=== PATIENT | female | born 2000 | race Caucasian/White ===

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

== ENCOUNTER 2020-02-13 12:46 | Outpatient (RCR) | payer BC, OTHER ==
[2019-11-21] MEDS: ACETAMINOPHEN 325 MG TABLET PO SCH (13:51)
[2019-11-21 14:00] VITALS: BP 121/80
[2019-11-21] MEDS: methylPREDNISolone 40 MG/ML (Solu-MEDROL) VIAL IV SCH (14:04)
[2019-11-21] MEDS: NS IV SCH ×2 (14:05)
[2019-11-21] MEDS: diphenhydrAMINE 50 MG/ML INJ (BENADRYL) IV SCH (14:05)
[2019-11-21] MEDS: INFLIXIMAB IV SCH ×2 (14:05)
[2019-11-21 14:35] VITALS: BP 105/57
[2019-11-21 14:37] LABS: BASOPHILS # (AUTO) 0.1 10^3/uL (0.0-0.1); BASOPHILS % (AUTO) 1 % (0-10); EOSINOPHILS # (AUTO) 0.2 10^3/uL (0.0-0.3); EOSINOPHILS % (AUTO) 3 % (0-10); HEMATOCRIT 38 % (35-52); HEMOGLOBIN 12.1 G/DL (11.5-16.0); LYMPHOCYTES # (AUTO) 3.2 X 10^3 (1.0-4.0); LYMPHOCYTES % (AUTO) 40 % (12-44); MEAN CORPUSCULAR HEMOGLOBIN 27 PG (25-34); MEAN CORPUSCULAR HGB CONC 32 G/DL (32-36); MEAN CORPUSCULAR VOLUME 84 FL (80-99); MEAN PLATELET VOLUME 10.5 FL (7.4-10.4); MONOCYTES # (AUTO) 0.7 X 10^3 (0.0-1.0); MONOCYTES % (AUTO) 9 % (0-12); NEUTROPHILS # (AUTO) 3.8 X 10^3 (1.8-7.8); NEUTROPHILS % (AUTO) 48 % (42-75); PLATELET COUNT 430 10^3/uL (130-400); RED CELL DISTRIBUTION WIDTH 12.5 % (10.0-14.5)
[2019-11-21 14:47] LABS: ALANINE AMINOTRANSFERASE 25 U/L (0-55); ALBUMIN 3.9 GM/DL (3.2-4.5); ALKALINE PHOSPHATASE 139 U/L (40-136); BILIRUBIN,TOTAL 0.4 MG/DL (0.1-1.0); BUN/CREATININE RATIO 25; CALCIUM 8.7 MG/DL (8.5-10.1); CARBON DIOXIDE 22 MMOL/L (21-32); CHLORIDE 105 MMOL/L (98-107); CREATININE SERUM 0.67 MG/DL (0.60-1.30); GFR ESTIMATED > 60; GLUCOSE 171 MG/DL (70-105); SODIUM 138 MMOL/L (135-145); TOTAL PROTEIN 7.3 GM/DL (6.4-8.2)
[2019-11-21 15:05] VITALS: BP 108/71
[2019-11-21 15:10] LABS: ERYTHROCYTE SEDIMENTATION RATE 30 MM/HR (0-20)
[2019-11-21 15:35] VITALS: BP 103/69
--- NOTE | 2019-11-21 16:10 | NUR ---
INFUSION COMPLETE. DENIES COMPLAINTS. VITAL SIGNS STABLE. WILL MONITOR PER ORDER.
[2019-11-21 16:35] VITALS: BP 110/81
--- NOTE | 2019-11-21 16:35 | NUR ---
VITAL SIGNS STABLE, DENIES COMPLAINTS. IV DC'D.
[2019-12-19] VITALS (8 sets, daily range): BP systolic 108–134; BP diastolic 69–97
[2019-12-19] MEDS: methylPREDNISolone 40 MG/ML (Solu-MEDROL) VIAL IV SCH (13:37)
[2019-12-19] MEDS: ACETAMINOPHEN 325 MG TABLET PO SCH (13:37)
[2019-12-19] MEDS: diphenhydrAMINE 50 MG/ML INJ (BENADRYL) IV SCH (13:37)
[2019-12-19] MEDS: NS IV SCH ×2 (13:43)
[2019-12-19] MEDS: INFLIXIMAB IV SCH ×2 (13:43)
--- NOTE | 2019-12-19 13:43 | NUR ---
REMICADE STARTED AT 10 CC/HR. VSS.
--- NOTE | 2019-12-19 13:55 | NUR ---
IV PUMP INCREASED TO 20 CC/HR. SITE CLEAR. VSS.
[2019-12-19 15:08] LABS: BASOPHILS # (AUTO) 0.1 10^3/uL (0.0-0.1); BASOPHILS % (AUTO) 1 % (0-10); EOSINOPHILS # (AUTO) 0.2 10^3/uL (0.0-0.3); EOSINOPHILS % (AUTO) 2 % (0-10); HEMATOCRIT 42 % (35-52); HEMOGLOBIN 13.8 G/DL (11.5-16.0); LYMPHOCYTES # (AUTO) 2.6 X 10^3 (1.0-4.0); LYMPHOCYTES % (AUTO) 29 % (12-44); MEAN CORPUSCULAR HEMOGLOBIN 26 PG (25-34); MEAN CORPUSCULAR HGB CONC 33 G/DL (32-36); MEAN CORPUSCULAR VOLUME 81 FL (80-99); MEAN PLATELET VOLUME 10.4 FL (7.4-10.4); MONOCYTES # (AUTO) 0.5 X 10^3 (0.0-1.0); MONOCYTES % (AUTO) 5 % (0-12); NEUTROPHILS # (AUTO) 5.5 X 10^3 (1.8-7.8); NEUTROPHILS % (AUTO) 63 % (42-75); PLATELET COUNT 522 10^3/uL (130-400); RED CELL DISTRIBUTION WIDTH 13.4 % (10.0-14.5); WHITE BLOOD COUNT 8.8 10^3/uL (4.3-11.0)
[2019-12-19 15:40] LABS: ERYTHROCYTE SEDIMENTATION RATE 6 MM/HR (0-20)
[2019-12-19 15:45] LABS: EOSINOPHILS % (MANUAL) 3 %; LYMPHOCYTES % (MANUAL) 36 %; MONOCYTES % (MANUAL) 6 %; NEUTROPHILS % (MANUAL) 55 %; RBC MORPH NORMAL
[2019-12-19 15:54] LABS: ALANINE AMINOTRANSFERASE 29 U/L (0-55); ALBUMIN 4.3 GM/DL (3.2-4.5); ALKALINE PHOSPHATASE 136 U/L (40-136); BILIRUBIN,TOTAL 0.4 MG/DL (0.1-1.0); BUN/CREATININE RATIO 18; CALCIUM 9.1 MG/DL (8.5-10.1); CARBON DIOXIDE 19 MMOL/L (21-32); CHLORIDE 106 MMOL/L (98-107); CREATININE SERUM 0.67 MG/DL (0.60-1.30); GFR ESTIMATED > 60; GLUCOSE 157 MG/DL (70-105); POTASSIUM 4.2 MMOL/L (3.6-5.0); SODIUM 138 MMOL/L (135-145); TOTAL PROTEIN 8.3 GM/DL (6.4-8.2)
--- NOTE | 2019-12-19 15:55 | NUR ---
REMICADE INFUSED WITHOUT DIFFICULTY. FLUSHED LINE WITH NORMAL SALINE. VSS. WILL LET PATIENT GO HOME IN 30 MINUTES.
--- NOTE | 2019-12-19 16:25 | NUR ---
TEMP 36.3, PULSE 97, RESP 16, B/P 129/84, SAO2 98% RA. DENIES COMPLAINTS. IV DC'D, SITE CLEAR LEFT UPPER ARM.
--- NOTE | 2019-12-19 16:30 | NUR ---
GAIT STEADY, DENIES COMPLAINTS. ESCORTED AMB TO FRONT EXIT TO PRIVATE VEHICLE.
[2020-01-16 12:46] VITALS: BP 120/78
[2020-01-16 14:11] LABS: BASOPHILS # (AUTO) 0.1 10^3/uL (0.0-0.1); BASOPHILS % (AUTO) 1 % (0-10); EOSINOPHILS # (AUTO) 0.3 10^3/uL (0.0-0.3); EOSINOPHILS % (AUTO) 3 % (0-10); HEMATOCRIT 37 % (35-52); LYMPHOCYTES # (AUTO) 2.1 X 10^3 (1.0-4.0); LYMPHOCYTES % (AUTO) 26 % (12-44); MEAN CORPUSCULAR HEMOGLOBIN 26 PG (25-34); MEAN CORPUSCULAR HGB CONC 32 G/DL (32-36); MEAN CORPUSCULAR VOLUME 81 FL (80-99); MEAN PLATELET VOLUME 10.5 FL (7.4-10.4); MONOCYTES # (AUTO) 0.5 X 10^3 (0.0-1.0); MONOCYTES % (AUTO) 6 % (0-12); NEUTROPHILS # (AUTO) 5.2 X 10^3 (1.8-7.8); NEUTROPHILS % (AUTO) 64 % (42-75); PLATELET COUNT 377 10^3/uL (130-400); RED CELL DISTRIBUTION WIDTH 14.2 % (10.0-14.5); WHITE BLOOD COUNT 8.1 10^3/uL (4.3-11.0)
[2020-01-16] MEDS: ACETAMINOPHEN 325 MG TABLET PO SCH (14:11)
[2020-01-16] MEDS: diphenhydrAMINE 50 MG/ML INJ (BENADRYL) IV SCH (14:12)
[2020-01-16 14:35] LABS: ALANINE AMINOTRANSFERASE 22 U/L (0-55); ALBUMIN 3.7 GM/DL (3.2-4.5); ALKALINE PHOSPHATASE 102 U/L (40-136); BUN/CREATININE RATIO 16; CALCIUM 8.5 MG/DL (8.5-10.1); CARBON DIOXIDE 20 MMOL/L (21-32); CHLORIDE 108 MMOL/L (98-107); CREATININE SERUM 0.61 MG/DL (0.60-1.30); GFR ESTIMATED > 60; GLUCOSE 144 MG/DL (70-105); POTASSIUM 3.9 MMOL/L (3.6-5.0); SODIUM 138 MMOL/L (135-145); TOTAL PROTEIN 6.8 GM/DL (6.4-8.2)
[2020-01-16 14:36] LABS: ERYTHROCYTE SEDIMENTATION RATE 19 MM/HR (0-20)
[2020-01-16 15:00] LABS: BILIRUBIN,TOTAL 0.3 MG/DL (0.1-1.0)
[2020-01-16] MEDS: methylPREDNISolone 40 MG/ML (Solu-MEDROL) VIAL IV SCH (15:22)
[2020-01-16] MEDS: INFLIXIMAB IV SCH ×2 (15:38)
[2020-01-16] MEDS: NS IV SCH ×2 (15:38)
[2020-01-16 16:15] VITALS: BP 112/70
[2020-01-16 17:15] VITALS: BP 114/78
[2020-01-16 18:10] VITALS: BP 117/72
[2020-01-16 18:30] VITALS: BP 120/78
[2020-02-13 12:45] VITALS: BP 98/70
[~2020-02-13 12:46] MED LIST changes: -ACETAMINOPHEN 325 MG TABLET ONE; -INFLIXIMAB IV SCH; +LIDOCAINE 1% INJ 20 ML 20 ML VIAL ONE; -NS IV SCH; -diphenhydrAMINE 50 MG/ML INJ (BENADRYL) ONE; -methylPREDNISolone 125 MG (Solu-MEDROL) VIAL ONE
[2020-02-13 13:33] LABS: BASOPHILS # (AUTO) 0.1 10^3/uL (0.0-0.1); BASOPHILS % (AUTO) 1 % (0-10); EOSINOPHILS # (AUTO) 0.3 10^3/uL (0.0-0.3); EOSINOPHILS % (AUTO) 3 % (0-10); HEMATOCRIT 37 % (35-52); HEMOGLOBIN 12.2 G/DL (11.5-16.0); LYMPHOCYTES # (AUTO) 2.8 X 10^3 (1.0-4.0); LYMPHOCYTES % (AUTO) 30 % (12-44); MEAN CORPUSCULAR HEMOGLOBIN 27 PG (25-34); MEAN CORPUSCULAR HGB CONC 33 G/DL (32-36); MEAN CORPUSCULAR VOLUME 80 FL (80-99); MEAN PLATELET VOLUME 10.9 FL (7.4-10.4); MONOCYTES # (AUTO) 0.8 X 10^3 (0.0-1.0); MONOCYTES % (AUTO) 9 % (0-12); NEUTROPHILS # (AUTO) 5.4 X 10^3 (1.8-7.8); NEUTROPHILS % (AUTO) 58 % (42-75); PLATELET COUNT 447 10^3/uL (130-400); RED CELL DISTRIBUTION WIDTH 14.7 % (10.0-14.5); WHITE BLOOD COUNT 9.3 10^3/uL (4.3-11.0)
[2020-02-13] MEDS: ACETAMINOPHEN 325 MG TABLET PO SCH (13:36)
[2020-02-13] MEDS: methylPREDNISolone 40 MG/ML (Solu-MEDROL) VIAL IV SCH (13:37)
[2020-02-13] MEDS: diphenhydrAMINE 50 MG/ML INJ (BENADRYL) IV SCH (13:41)
[2020-02-13 13:51] LABS: ALBUMIN 3.7 GM/DL (3.2-4.5); CHLORIDE 104 MMOL/L (98-107); POTASSIUM 5.8 MMOL/L (3.6-5.0); SODIUM 133 MMOL/L (135-145)
[2020-02-13 13:52] LABS: CALCIUM 8.4 MG/DL (8.5-10.1)
[2020-02-13 13:54] LABS: GLUCOSE 93 MG/DL (70-105); TOTAL PROTEIN 8.6 GM/DL (6.4-8.2)
[2020-02-13 13:55] LABS: CARBON DIOXIDE 19 MMOL/L (21-32)
[2020-02-13 13:56] LABS: BILIRUBIN,TOTAL 0.4 MG/DL (0.1-1.0)
[2020-02-13 13:57] LABS: ALKALINE PHOSPHATASE 113 U/L (40-136); ERYTHROCYTE SEDIMENTATION RATE 17 MM/HR (0-20)
[2020-02-13 13:58] LABS: CREATININE SERUM 0.61 MG/DL (0.60-1.30); GFR ESTIMATED > 60
[2020-02-13 13:59] LABS: BUN/CREATININE RATIO 15
[2020-02-13 14:00] LABS: ALANINE AMINOTRANSFERASE 31 U/L (0-55)
[2020-02-13] MEDS: INFLIXIMAB IV SCH ×2 (14:15)
[2020-02-13] MEDS: NS IV SCH ×2 (14:15)
[2020-02-13 16:45] VITALS: BP 108/70
== END 2020-02-19 | disposition home or self-care (01) ==
LOC: SDC 12:46
PROVIDERS: ATTEND Pediatrics
DX: M12.9 Arthropathy, unspecified (principal)
CPT/HCPCS: 36415; 80053; 85007; 85025; 85027; 85652; 86141; 96365; 96366; 96374; 96375

== ENCOUNTER → 2020-06-10 | Outpatient (RCR) | payer BC, OTHER ==
[2020-03-12 13:47] LABS: BASOPHILS % (AUTO) 1 % (0-10); EOSINOPHILS # (AUTO) 0.3 10^3/uL (0.0-0.3); EOSINOPHILS % (AUTO) 3 % (0-10); HEMATOCRIT 38 % (35-52); HEMOGLOBIN 12.4 G/DL (11.5-16.0); LYMPHOCYTES # (AUTO) 2.3 X 10^3 (1.0-4.0); LYMPHOCYTES % (AUTO) 27 % (12-44); MEAN CORPUSCULAR HEMOGLOBIN 27 PG (25-34); MEAN CORPUSCULAR HGB CONC 33 G/DL (32-36); MEAN CORPUSCULAR VOLUME 81 FL (80-99); MEAN PLATELET VOLUME 10.2 FL (7.4-10.4); MONOCYTES # (AUTO) 0.5 X 10^3 (0.0-1.0); MONOCYTES % (AUTO) 6 % (0-12); NEUTROPHILS # (AUTO) 5.4 X 10^3 (1.8-7.8); NEUTROPHILS % (AUTO) 64 % (42-75); PLATELET COUNT 408 10^3/uL (130-400); WHITE BLOOD COUNT 8.5 10^3/uL (4.3-11.0)
[2020-03-12] MEDS: methylPREDNISolone 40 MG/ML (Solu-MEDROL) VIAL IV SCH (13:50)
[2020-03-12] MEDS: ACETAMINOPHEN 325 MG TABLET PO SCH (13:50)
[2020-03-12] MEDS: diphenhydrAMINE 50 MG/ML INJ (BENADRYL) IV SCH (13:50)
[2020-03-12 13:58] VITALS: BP 113/73
[2020-03-12 13:59] LABS: ALBUMIN 3.8 GM/DL (3.2-4.5); CHLORIDE 106 MMOL/L (98-107); POTASSIUM 4.1 MMOL/L (3.6-5.0); SODIUM 137 MMOL/L (135-145)
[2020-03-12 14:00] LABS: CALCIUM 8.8 MG/DL (8.5-10.1)
[2020-03-12 14:02] LABS: GLUCOSE 124 MG/DL (70-105); TOTAL PROTEIN 7.4 GM/DL (6.4-8.2)
[2020-03-12 14:03] LABS: BILIRUBIN,TOTAL 0.4 MG/DL (0.1-1.0); CARBON DIOXIDE 21 MMOL/L (21-32)
[2020-03-12 14:05] LABS: ALKALINE PHOSPHATASE 134 U/L (40-136); CREATININE SERUM 0.55 MG/DL (0.60-1.30); GFR ESTIMATED > 60
[2020-03-12 14:06] LABS: BUN/CREATININE RATIO 13
[2020-03-12 14:08] LABS: ALANINE AMINOTRANSFERASE 30 U/L (0-55)
[2020-03-12 14:11] LABS: ERYTHROCYTE SEDIMENTATION RATE 32 MM/HR (0-20)
--- NOTE | 2020-03-12 16:20 | NUR ---
INFUSION COMPLETE. IV DC'D, NO COMPLAINTS AT THIS TIME. PT DC'D WITH MOTHER AT SIDE.
[2020-04-15 13:25] VITALS: BP 113/73
[2020-04-15 13:25] LABS: BASOPHILS % (AUTO) 1 % (0-10); EOSINOPHILS # (AUTO) 0.3 10^3/uL (0.0-0.3); EOSINOPHILS % (AUTO) 5 % (0-10); HEMATOCRIT 36 % (35-52); HEMOGLOBIN 11.6 G/DL (11.5-16.0); LYMPHOCYTES # (AUTO) 2.3 X 10^3 (1.0-4.0); LYMPHOCYTES % (AUTO) 35 % (12-44); MEAN CORPUSCULAR HEMOGLOBIN 26 PG (25-34); MEAN CORPUSCULAR HGB CONC 33 G/DL (32-36); MEAN CORPUSCULAR VOLUME 81 FL (80-99); MEAN PLATELET VOLUME 10.7 FL (7.4-10.4); MONOCYTES # (AUTO) 0.6 X 10^3 (0.0-1.0); MONOCYTES % (AUTO) 9 % (0-12); NEUTROPHILS # (AUTO) 3.4 X 10^3 (1.8-7.8); NEUTROPHILS % (AUTO) 52 % (42-75); PLATELET COUNT 412 10^3/uL (130-400); WHITE BLOOD COUNT 6.6 10^3/uL (4.3-11.0)
--- NOTE | 2020-04-15 13:34 | NUR ---
PREMEDS GIVEN. REMICADE STARTED PER PUMP AT 1340.
[2020-04-15] MEDS: diphenhydrAMINE 50 MG/ML INJ (BENADRYL) IV SCH (13:36)
[2020-04-15 13:54] LABS: ALANINE AMINOTRANSFERASE 35 U/L (0-55); ALBUMIN 3.7 GM/DL (3.2-4.5); ALKALINE PHOSPHATASE 117 U/L (40-136); BILIRUBIN,TOTAL 0.5 MG/DL (0.1-1.0); BUN/CREATININE RATIO 23; CALCIUM 8.5 MG/DL (8.5-10.1); CARBON DIOXIDE 23 MMOL/L (21-32); CHLORIDE 108 MMOL/L (98-107); CREATININE SERUM 0.56 MG/DL (0.60-1.30); ERYTHROCYTE SEDIMENTATION RATE 29 MM/HR (0-20); GFR ESTIMATED > 60; GLUCOSE 91 MG/DL (70-105); SODIUM 138 MMOL/L (135-145); TOTAL PROTEIN 7.3 GM/DL (6.4-8.2)
--- NOTE | 2020-04-15 15:56 | NUR ---
REMICADE INFUSED WITHOUT S/S OF ANY REACTION. PT DC'D
[2020-05-13 08:16] LABS: BASOPHILS % (AUTO) 1 % (0-10); EOSINOPHILS # (AUTO) 0.2 10^3/uL (0.0-0.3); EOSINOPHILS % (AUTO) 4 % (0-10); HEMATOCRIT 37 % (35-52); LYMPHOCYTES # (AUTO) 2.1 X 10^3 (1.0-4.0); LYMPHOCYTES % (AUTO) 32 % (12-44); MEAN CORPUSCULAR HEMOGLOBIN 26 PG (25-34); MEAN CORPUSCULAR HGB CONC 32 G/DL (32-36); MEAN CORPUSCULAR VOLUME 80 FL (80-99); MEAN PLATELET VOLUME 10.8 FL (7.4-10.4); MONOCYTES # (AUTO) 0.7 X 10^3 (0.0-1.0); MONOCYTES % (AUTO) 10 % (0-12); NEUTROPHILS # (AUTO) 3.6 X 10^3 (1.8-7.8); NEUTROPHILS % (AUTO) 54 % (42-75); PLATELET COUNT 373 10^3/uL (130-400); WHITE BLOOD COUNT 6.6 10^3/uL (4.3-11.0)
[2020-05-13] MEDS: ACETAMINOPHEN 325 MG TABLET PO SCH (08:17)
[2020-05-13] MEDS: methylPREDNISolone 40 MG/ML (Solu-MEDROL) VIAL IV SCH (08:18)
[2020-05-13] MEDS: diphenhydrAMINE 50 MG/ML INJ (BENADRYL) IV SCH (08:18)
[2020-05-13 08:31] VITALS: BP 128/83
[2020-05-13 08:34] LABS: ALANINE AMINOTRANSFERASE 34 U/L (0-55); ALKALINE PHOSPHATASE 126 U/L (40-136); BILIRUBIN,TOTAL 0.4 MG/DL (0.1-1.0); BUN/CREATININE RATIO 26; CALCIUM 8.9 MG/DL (8.5-10.1); CARBON DIOXIDE 21 MMOL/L (21-32); CHLORIDE 106 MMOL/L (98-107); CREATININE SERUM 0.58 MG/DL (0.60-1.30); GFR ESTIMATED > 60; GLUCOSE 93 MG/DL (70-105); SODIUM 138 MMOL/L (135-145); TOTAL PROTEIN 7.9 GM/DL (6.4-8.2)
[2020-05-13 08:45] VITALS: BP 125/82
[2020-05-13 09:00] VITALS: BP 119/74
[2020-05-13 09:10] LABS: ERYTHROCYTE SEDIMENTATION RATE 34 MM/HR (0-20)
[2020-05-13 09:15] VITALS: BP 105/60
[2020-05-13 09:30] VITALS: BP 113/65
[2020-05-13 10:00] VITALS: BP 112/58
[~2020-06-10] MED LIST changes: +ACETAMINOPHEN 325 MG TABLET ONE; +INFLIXIMAB IV ONE; +INFLIXIMAB IV SCH; -LIDOCAINE 1% INJ 20 ML 20 ML VIAL ONE; +NS IV ONE; +NS IV SCH; +diphenhydrAMINE 50 MG/ML INJ (BENADRYL) ONE; +methylPREDNISolone 40 MG/ML (Solu-MEDROL) VIAL ONE
[2020-06-10] MEDS: ACETAMINOPHEN 325 MG TABLET PO SCH (08:20)
[2020-06-10] MEDS: methylPREDNISolone 40 MG/ML (Solu-MEDROL) VIAL IV SCH (08:20)
[2020-06-10] MEDS: diphenhydrAMINE 50 MG/ML INJ (BENADRYL) IV SCH (08:21)
--- NOTE | 2020-06-10 08:21 | NUR ---
REMICADE INFUSION STARTED AT 10 CC/HR PER PUMP. VSS.
[2020-06-10 08:24] LABS: BASOPHILS % (AUTO) 0 % (0-10); EOSINOPHILS # (AUTO) 0.2 10^3/uL (0.0-0.3); EOSINOPHILS % (AUTO) 3 % (0-10); HEMATOCRIT 38 % (35-52); LYMPHOCYTES # (AUTO) 2.8 X 10^3 (1.0-4.0); LYMPHOCYTES % (AUTO) 44 % (12-44); MEAN CORPUSCULAR HEMOGLOBIN 26 PG (25-34); MEAN CORPUSCULAR HGB CONC 32 G/DL (32-36); MEAN CORPUSCULAR VOLUME 81 FL (80-99); MEAN PLATELET VOLUME 10.7 FL (7.4-10.4); MONOCYTES # (AUTO) 0.5 X 10^3 (0.0-1.0); MONOCYTES % (AUTO) 7 % (0-12); NEUTROPHILS # (AUTO) 2.9 X 10^3 (1.8-7.8); NEUTROPHILS % (AUTO) 46 % (42-75); PLATELET COUNT 383 10^3/uL (130-400); WHITE BLOOD COUNT 6.4 10^3/uL (4.3-11.0)
[2020-06-10 08:28] VITALS: BP 138/89
[2020-06-10 08:35] VITALS: BP 125/76
--- NOTE | 2020-06-10 08:35 | NUR ---
REMICADE INCREASED TO 20 CC/HR.
[2020-06-10 08:39] LABS: ALANINE AMINOTRANSFERASE 76 U/L (0-55); ALBUMIN 3.9 GM/DL (3.2-4.5); ALKALINE PHOSPHATASE 101 U/L (40-136); BILIRUBIN,TOTAL 0.3 MG/DL (0.1-1.0); BUN/CREATININE RATIO 29; CALCIUM 8.5 MG/DL (8.5-10.1); CARBON DIOXIDE 21 MMOL/L (21-32); CHLORIDE 106 MMOL/L (98-107); CREATININE SERUM 0.58 MG/DL (0.60-1.30); GFR ESTIMATED > 60; GLUCOSE 108 MG/DL (70-105); POTASSIUM 4.3 MMOL/L (3.6-5.0); SODIUM 136 MMOL/L (135-145); TOTAL PROTEIN 7.5 GM/DL (6.4-8.2)
[2020-06-10 08:49] LABS: ERYTHROCYTE SEDIMENTATION RATE 32 MM/HR (0-20)
[2020-06-10 08:50] VITALS: BP 117/74
--- NOTE | 2020-06-10 08:50 | NUR ---
REMICADE INCREASED TO 40 CC/HR.
--- NOTE | 2020-06-10 09:05 | NUR ---
REMICADE INCREASED TO 80 CC/HR.
[2020-06-10 09:10] VITALS: BP 120/66
[2020-06-10 09:20] VITALS: BP 129/74
--- NOTE | 2020-06-10 09:20 | NUR ---
REMICADE INCREASED TO 150 CC/HR. VSS.
[2020-06-10 09:50] VITALS: BP 129/69
--- NOTE | 2020-06-10 09:50 | NUR ---
REMICADE INCREASED TO 250 CC/HR. VSS.
== END | disposition home or self-care (01) ==
LOC: EDSTATUS 03-12 13:00 → SDC 03-12 13:20
PROVIDERS: ATTEND Pediatrics
DX: Z01.89 Encounter for other specified special examinations (principal)
CPT/HCPCS: 36415; 80053; 85025; 85652; 86141; 96365; 96366; 96374; 96375

== ENCOUNTER 2020-09-09 07:54 | Outpatient (RCR) | payer BC, OTHER ==
[2020-07-08 08:35] VITALS: BP 116/82
[2020-07-08 08:38] LABS: HEMOGLOBIN 12.2 g/dL (11.5-16.0); MEAN PLATELET VOLUME 10.5 fL (9.0-12.2)
[2020-07-08 08:58] LABS: ALANINE AMINOTRANSFERASE 63 U/L (0-55); ALBUMIN 3.6 GM/DL (3.2-4.5); ALKALINE PHOSPHATASE 104 U/L (40-136); BILIRUBIN,TOTAL 0.4 MG/DL (0.1-1.0); BUN/CREATININE RATIO 17; CALCIUM 8.4 MG/DL (8.5-10.1); CARBON DIOXIDE 20 MMOL/L (21-32); CHLORIDE 107 MMOL/L (98-107); CREATININE SERUM 0.54 MG/DL (0.60-1.30); GFR ESTIMATED > 60; GLUCOSE 112 MG/DL (70-105); POTASSIUM 4.2 MMOL/L (3.6-5.0); SODIUM 139 MMOL/L (135-145); TOTAL PROTEIN 6.9 GM/DL (6.4-8.2)
[2020-07-08] MEDS: ACETAMINOPHEN 325 MG TABLET PO SCH (09:15)
[2020-07-08] MEDS: methylPREDNISolone 40 MG/ML (Solu-MEDROL) VIAL IV SCH (09:15)
[2020-07-08] MEDS: diphenhydrAMINE 50 MG/ML INJ (BENADRYL) IV SCH (09:15)
[2020-07-08] MEDS: NS IV SCH ×2 (09:26)
[2020-07-08] MEDS: INFLIXIMAB IV SCH ×2 (09:26)
[2020-08-12 08:15] VITALS: BP 111/73
[2020-08-12] MEDS: methylPREDNISolone 40 MG/ML (Solu-MEDROL) VIAL IV SCH (08:29)
[2020-08-12] MEDS: ACETAMINOPHEN 325 MG TABLET PO SCH (08:29)
[2020-08-12] MEDS: diphenhydrAMINE 50 MG/ML INJ (BENADRYL) IV SCH (08:29)
[2020-08-12 08:30] LABS: BASOPHILS % (AUTO) 0 % (0-10); EOSINOPHILS # (AUTO) 0.2 10^3/uL (0.0-0.3); EOSINOPHILS % (AUTO) 4 % (0-10); HEMATOCRIT 45 % (35-52); HEMOGLOBIN 14.4 g/dL (11.5-16.0); LYMPHOCYTES # (AUTO) 2.4 10^3/uL (1.0-4.0); LYMPHOCYTES % (AUTO) 39 % (12-44); MEAN CORPUSCULAR HEMOGLOBIN 27 pg (25-34); MEAN CORPUSCULAR HGB CONC 32 g/dL (32-36); MEAN CORPUSCULAR VOLUME 84 fL (80-99); MEAN PLATELET VOLUME 11.5 fL (9.0-12.2); MONOCYTES # (AUTO) 0.3 10^3/uL (0.0-1.0); MONOCYTES % (AUTO) 6 % (0-12); NEUTROPHILS # (AUTO) 3.2 10^3/uL (1.8-7.8); NEUTROPHILS % (AUTO) 52 % (42-75); PLATELET COUNT 386 10^3/uL (130-400); WHITE BLOOD COUNT 6.1 10^3/uL (4.3-11.0)
[2020-08-12] MEDS: INFLIXIMAB IV SCH ×2 (08:41)
[2020-08-12] MEDS: NS IV SCH ×2 (08:41)
[2020-08-12 08:49] LABS: ERYTHROCYTE SEDIMENTATION RATE 7 MM/HR (0-20)
[2020-08-12 09:08] LABS: ALANINE AMINOTRANSFERASE 55 U/L (0-55); ALBUMIN 3.7 GM/DL (3.2-4.5); ALKALINE PHOSPHATASE 101 U/L (40-136); BILIRUBIN,TOTAL 0.6 MG/DL (0.1-1.0); BUN/CREATININE RATIO 15; CALCIUM 8.6 MG/DL (8.5-10.1); CARBON DIOXIDE 22 MMOL/L (21-32); CHLORIDE 108 MMOL/L (98-107); CREATININE SERUM 0.59 MG/DL (0.60-1.30); GFR ESTIMATED > 60; GLUCOSE 84 MG/DL (70-105); POTASSIUM 3.7 MMOL/L (3.6-5.0); SODIUM 140 MMOL/L (135-145)
[~2020-09-09] VITALS: Ht 152.4 cm
[~2020-09-09 07:54] MED LIST changes: -ACETAMINOPHEN 325 MG TABLET ONE; -INFLIXIMAB IV ONE; -INFLIXIMAB IV SCH; -NS IV ONE; -NS IV SCH; +ONDANSETRON 4 MG (ZOFRAN) ORAL DISSOLVE TAB PO PRN; -ONDANSETRON 4 MG/2 ML (SDV) Z0FRAN IV PRN; -diphenhydrAMINE 50 MG/ML INJ (BENADRYL) ONE; -methylPREDNISolone 40 MG/ML (Solu-MEDROL) VIAL ONE
[2020-09-09 08:15] VITALS: BP 111/75
[2020-09-09] MEDS: ACETAMINOPHEN 325 MG TABLET PO SCH (08:16)
[2020-09-09] MEDS: methylPREDNISolone 40 MG/ML (Solu-MEDROL) VIAL IV SCH (08:16)
[2020-09-09] MEDS: NS IV SCH ×2 (08:16)
[2020-09-09] MEDS: INFLIXIMAB IV SCH ×2 (08:16)
[2020-09-09] MEDS: diphenhydrAMINE 50 MG/ML INJ (BENADRYL) IV SCH (08:16)
[2020-09-09 09:13] LABS: BASOPHILS % (AUTO) 1 % (0-10); EOSINOPHILS # (AUTO) 0.3 10^3/uL (0.0-0.3); EOSINOPHILS % (AUTO) 5 % (0-10); HEMATOCRIT 39 % (35-52); HEMOGLOBIN 12.3 g/dL (11.5-16.0); LYMPHOCYTES # (AUTO) 1.8 10^3/uL (1.0-4.0); LYMPHOCYTES % (AUTO) 35 % (12-44); MEAN CORPUSCULAR HEMOGLOBIN 27 pg (25-34); MEAN CORPUSCULAR HGB CONC 32 g/dL (32-36); MEAN CORPUSCULAR VOLUME 85 fL (80-99); MEAN PLATELET VOLUME 10.8 fL (9.0-12.2); MONOCYTES # (AUTO) 0.3 10^3/uL (0.0-1.0); MONOCYTES % (AUTO) 6 % (0-12); NEUTROPHILS # (AUTO) 2.8 10^3/uL (1.8-7.8); NEUTROPHILS % (AUTO) 53 % (42-75); PLATELET COUNT 386 10^3/uL (130-400); WHITE BLOOD COUNT 5.3 10^3/uL (4.3-11.0)
[2020-09-09 09:38] LABS: ALANINE AMINOTRANSFERASE 66 U/L (0-55); ALBUMIN 3.7 GM/DL (3.2-4.5); ALKALINE PHOSPHATASE 91 U/L (40-136); BILIRUBIN,TOTAL 0.4 MG/DL (0.1-1.0); BUN/CREATININE RATIO 17; CALCIUM 8.4 MG/DL (8.5-10.1); CARBON DIOXIDE 19 MMOL/L (21-32); CHLORIDE 109 MMOL/L (98-107); CREATININE SERUM 0.59 MG/DL (0.60-1.30); GFR ESTIMATED > 60; GLUCOSE 124 MG/DL (70-105); POTASSIUM 3.8 MMOL/L (3.6-5.0); SODIUM 136 MMOL/L (135-145)
[2020-09-09 09:55] LABS: ERYTHROCYTE SEDIMENTATION RATE 18 MM/HR (0-20)
== END 2020-10-06 | disposition home or self-care (01) ==
LOC: SDC 07:54
PROVIDERS: ATTEND Pediatrics
DX: Z01.89 Encounter for other specified special examinations (principal)
CPT/HCPCS: 36415; 80053; 85025; 85027; 85652; 86141; 96365; 96366; 96374; 96375

== ENCOUNTER 2020-11-07 09:27 | Outpatient (RCR) | payer BC, OTHER ==
[2020-10-10 12:35] LABS: BASOPHILS % (AUTO) 0 % (0-10); EOSINOPHILS # (AUTO) 0.3 10^3/uL (0.0-0.3); EOSINOPHILS % (AUTO) 4 % (0-10); HEMATOCRIT 38 % (35-52); HEMOGLOBIN 12.4 g/dL (11.5-16.0); LYMPHOCYTES # (AUTO) 1.6 10^3/uL (1.0-4.0); LYMPHOCYTES % (AUTO) 20 % (12-44); MEAN CORPUSCULAR HEMOGLOBIN 27 pg (25-34); MEAN CORPUSCULAR HGB CONC 33 g/dL (32-36); MEAN CORPUSCULAR VOLUME 83 fL (80-99); MEAN PLATELET VOLUME 10.9 fL (9.0-12.2); MONOCYTES # (AUTO) 0.6 10^3/uL (0.0-1.0); MONOCYTES % (AUTO) 8 % (0-12); NEUTROPHILS # (AUTO) 5.4 10^3/uL (1.8-7.8); NEUTROPHILS % (AUTO) 68 % (42-75); PLATELET COUNT 379 10^3/uL (130-400); WHITE BLOOD COUNT 7.9 10^3/uL (4.3-11.0)
[2020-10-10] MEDS: diphenhydrAMINE 50 MG/ML INJ (BENADRYL) IV SCH (12:35)
[2020-10-10] MEDS: methylPREDNISolone 40 MG/ML (Solu-MEDROL) VIAL IV SCH (12:35)
[2020-10-10] MEDS: ACETAMINOPHEN 325 MG TABLET PO SCH (12:36)
[2020-10-10] MEDS: INFLIXIMAB IV SCH ×2 (12:37)
[2020-10-10] MEDS: NS IV SCH ×2 (12:37)
[2020-10-10 12:54] LABS: ALANINE AMINOTRANSFERASE 80 U/L (0-55); ALBUMIN 3.7 GM/DL (3.2-4.5); ALKALINE PHOSPHATASE 93 U/L (40-136); BILIRUBIN,TOTAL 0.3 MG/DL (0.1-1.0); BUN/CREATININE RATIO 21; CALCIUM 8.5 MG/DL (8.5-10.1); CARBON DIOXIDE 22 MMOL/L (21-32); CHLORIDE 105 MMOL/L (98-107); CREATININE SERUM 0.72 MG/DL (0.60-1.30); GFR ESTIMATED > 60; GLUCOSE 105 MG/DL (70-105); POTASSIUM 4.1 MMOL/L (3.6-5.0); SODIUM 137 MMOL/L (135-145); TOTAL PROTEIN 7.2 GM/DL (6.4-8.2)
[2020-10-10 13:02] LABS: ERYTHROCYTE SEDIMENTATION RATE 22 MM/HR (0-20)
[2020-10-10 13:16] VITALS: BP 134/84
[2020-11-07 09:25] VITALS: BP 111/73
[~2020-11-07 09:27] MED LIST changes: +ACETAMINOPHEN 325 MG TABLET ONE; +EPINEPHrine INJECTION 1 MG/ML AMP IV PRN; -EPINEPHrine INJECTION 1 MG/ML AMP SC PRN; -ONDANSETRON 4 MG (ZOFRAN) ORAL DISSOLVE TAB PO PRN; +ONDANSETRON 4 MG/2 ML (SDV) Z0FRAN IV PRN; +diphenhydrAMINE 50 MG/ML INJ (BENADRYL) ONE
[2020-11-07] MEDS: ACETAMINOPHEN 325 MG TABLET PO SCH (09:41)
[2020-11-07] MEDS: methylPREDNISolone 40 MG/ML (Solu-MEDROL) VIAL IV SCH (09:41)
[2020-11-07] MEDS: diphenhydrAMINE 50 MG/ML INJ (BENADRYL) IV SCH (09:42)
[2020-11-07] MEDS: INFLIXIMAB IV SCH ×2 (09:50)
[2020-11-07] MEDS: NS IV SCH ×2 (09:50)
[2020-11-07 09:58] LABS: BASOPHILS % (AUTO) 0 % (0-10); EOSINOPHILS # (AUTO) 0.4 10^3/uL (0.0-0.3); EOSINOPHILS % (AUTO) 6 % (0-10); HEMATOCRIT 41 % (35-52); HEMOGLOBIN 13.1 g/dL (11.5-16.0); LYMPHOCYTES # (AUTO) 2.1 10^3/uL (1.0-4.0); LYMPHOCYTES % (AUTO) 30 % (12-44); MEAN CORPUSCULAR HEMOGLOBIN 27 pg (25-34); MEAN CORPUSCULAR HGB CONC 32 g/dL (32-36); MEAN CORPUSCULAR VOLUME 85 fL (80-99); MEAN PLATELET VOLUME 11.2 fL (9.0-12.2); MONOCYTES # (AUTO) 0.5 10^3/uL (0.0-1.0); MONOCYTES % (AUTO) 7 % (0-12); NEUTROPHILS # (AUTO) 3.9 10^3/uL (1.8-7.8); NEUTROPHILS % (AUTO) 57 % (42-75); PLATELET COUNT 377 10^3/uL (130-400); WHITE BLOOD COUNT 6.9 10^3/uL (4.3-11.0)
[2020-11-07 10:12] LABS: ALANINE AMINOTRANSFERASE 93 U/L (0-55); ALBUMIN 3.8 GM/DL (3.2-4.5); ALKALINE PHOSPHATASE 110 U/L (40-136); BILIRUBIN,TOTAL 0.3 MG/DL (0.1-1.0); BUN/CREATININE RATIO 14; CALCIUM 8.8 MG/DL (8.5-10.1); CARBON DIOXIDE 21 MMOL/L (21-32); CHLORIDE 107 MMOL/L (98-107); CREATININE SERUM 0.65 MG/DL (0.60-1.30); GFR ESTIMATED > 60; GLUCOSE 103 MG/DL (70-105); SODIUM 137 MMOL/L (135-145); TOTAL PROTEIN 7.3 GM/DL (6.4-8.2)
[2020-11-07 10:20] VITALS: BP 115/69
[2020-11-07 10:50] VITALS: BP 103/70
[2020-11-07 11:20] VITALS: BP 103/74
[2020-11-07 11:50] VITALS: BP 103/79
[2020-11-07 16:21] LABS: ERYTHROCYTE SEDIMENTATION RATE 16 MM/HR (0-20)
== END 2021-01-08 | disposition home or self-care (01) ==
LOC: SDC 09:27
PROVIDERS: ATTEND Pediatrics
DX: Z01.89 Encounter for other specified special examinations (principal)
CPT/HCPCS: 36415; 80053; 85025; 85652; 86141; 96365; 96366

== ENCOUNTER 2020-12-05 09:27 | Outpatient (RCR) | payer BC, OTHER ==
[~2020-12-05] VITALS: Ht 153 cm; Wt 56.2 kg
[2020-12-05] MEDS ORDERED: ACETAMINOPHEN 325 MG TABLET ONE (09:44)
[2020-12-05] MEDS ORDERED: methylPREDNISolone 40 MG/ML (Solu-MEDROL) VIAL ONE (09:44)
[2020-12-05] MEDS ORDERED: diphenhydrAMINE 50 MG/ML INJ (BENADRYL) ONE (09:44)
[2020-12-05] MEDS ORDERED: diphenhydrAMINE 50 MG/ML INJ (BENADRYL) IVP SCH (10:00)
[2020-12-05] MEDS ORDERED: EPINEPHrine INJECTION 1 MG/ML AMP SC PRN (10:00)
[2020-12-05] MEDS ORDERED: diphenhydrAMINE 50 MG/ML INJ (BENADRYL) IV PRN (10:00)
[2020-12-05] MEDS ORDERED: methylPREDNISolone 125 MG (Solu-MEDROL) VIAL IV PRN (10:00)
[2020-12-05] MEDS ORDERED: inFLIXimab FOR IV 600 MG in NORMAL SALINE 250 ML IV SCH (10:00)
[2020-12-05] MEDS ORDERED: EPINEPHrine INJECTION 1 MG/ML AMP IV PRN (10:00)
[2020-12-05] MEDS ORDERED: methylPREDNISolone 40 MG/ML (Solu-MEDROL) VIAL IV SCH (10:00)
[2020-12-05] MEDS ORDERED: ACETAMINOPHEN 325 MG TABLET PO SCH (10:00)
[2020-12-05] MEDS ORDERED: ONDANSETRON 4 MG/2 ML (SDV) Z0FRAN IV PRN (10:00)
[2020-12-05 10:26] LABS: BASOPHILS % (AUTO) 1 % (0-10); EOSINOPHILS # (AUTO) 0.3 10^3/uL (0.0-0.3); EOSINOPHILS % (AUTO) 4 % (0-10); HEMATOCRIT 40 % (35-52); HEMOGLOBIN 12.8 g/dL (11.5-16.0); LYMPHOCYTES # (AUTO) 1.9 10^3/uL (1.0-4.0); LYMPHOCYTES % (AUTO) 22 % (12-44); MEAN CORPUSCULAR HEMOGLOBIN 27 pg (25-34); MEAN CORPUSCULAR HGB CONC 32 g/dL (32-36); MEAN CORPUSCULAR VOLUME 85 fL (80-99); MEAN PLATELET VOLUME 10.8 fL (9.0-12.2); MONOCYTES # (AUTO) 0.5 10^3/uL (0.0-1.0); MONOCYTES % (AUTO) 6 % (0-12); NEUTROPHILS # (AUTO) 5.9 10^3/uL (1.8-7.8); NEUTROPHILS % (AUTO) 68 % (42-75); PLATELET COUNT 356 10^3/uL (130-400); WHITE BLOOD COUNT 8.6 10^3/uL (4.3-11.0)
[2020-12-05 10:49] LABS: ERYTHROCYTE SEDIMENTATION RATE 19 MM/HR (0-20)
[2020-12-05 10:57] LABS: ALANINE AMINOTRANSFERASE 55 U/L (0-55); ALBUMIN 3.8 GM/DL (3.2-4.5); ALKALINE PHOSPHATASE 112 U/L (40-136); BILIRUBIN,TOTAL 0.6 MG/DL (0.1-1.0); BUN/CREATININE RATIO 14; CALCIUM 8.5 MG/DL (8.5-10.1); CARBON DIOXIDE 22 MMOL/L (21-32); CHLORIDE 106 MMOL/L (98-107); CREATININE SERUM 0.66 MG/DL (0.60-1.30); GFR ESTIMATED > 60; GLUCOSE 114 MG/DL (70-105); POTASSIUM 4.2 MMOL/L (3.6-5.0); SODIUM 138 MMOL/L (135-145); TOTAL PROTEIN 7.3 GM/DL (6.4-8.2)
[2020-12-05 11:00] VITALS: BP 121/81
== END 2020-12-05 11:00 | disposition home or self-care (01) ==
LOC: SDC 09:27 → EDSTATUS 09:30 → SDC 11:00
PROVIDERS: ATTEND Pediatrics
DX: Z01.89 Encounter for other specified special examinations (principal)
CPT/HCPCS: 36415; 80053; 85025; 85652; 86141; 96365; 96366

== ENCOUNTER 2021-03-18 08:07 | Outpatient (RCR) | payer BC, OTHER ==
[2021-01-09] VITALS (7 sets, daily range): BP systolic 101–122; BP diastolic 61–78
[2021-01-09 08:28] LABS: BASOPHILS % (AUTO) 0 % (0-10); EOSINOPHILS # (AUTO) 0.3 10^3/uL (0.0-0.3); EOSINOPHILS % (AUTO) 4 % (0-10); HEMATOCRIT 41 % (35-52); HEMOGLOBIN 13.1 g/dL (11.5-16.0); LYMPHOCYTES % (AUTO) 36 % (12-44); MEAN CORPUSCULAR HEMOGLOBIN 27 pg (25-34); MEAN CORPUSCULAR HGB CONC 32 g/dL (32-36); MEAN CORPUSCULAR VOLUME 85 fL (80-99); MONOCYTES # (AUTO) 0.6 10^3/uL (0.0-1.0); MONOCYTES % (AUTO) 7 % (0-12); NEUTROPHILS # (AUTO) 4.3 10^3/uL (1.8-7.8); NEUTROPHILS % (AUTO) 52 % (42-75); PLATELET COUNT 370 10^3/uL (130-400); WHITE BLOOD COUNT 8.2 10^3/uL (4.3-11.0)
[2021-01-09 08:43] LABS: ALBUMIN 3.8 GM/DL (3.2-4.5); ALKALINE PHOSPHATASE 96 U/L (40-136); BILIRUBIN,TOTAL 0.6 MG/DL (0.1-1.0); BUN/CREATININE RATIO 21; CALCIUM 8.6 MG/DL (8.5-10.1); CARBON DIOXIDE 21 MMOL/L (21-32); CHLORIDE 105 MMOL/L (98-107); CREATININE SERUM 0.66 MG/DL (0.60-1.30); GFR ESTIMATED > 60; GLUCOSE 104 MG/DL (70-105); POTASSIUM 4.1 MMOL/L (3.6-5.0); SODIUM 138 MMOL/L (135-145); TOTAL PROTEIN 7.2 GM/DL (6.4-8.2)
[2021-01-09] MEDS: ACETAMINOPHEN 325 MG TABLET PO SCH (08:47)
[2021-01-09] MEDS: methylPREDNISolone 40 MG/ML (Solu-MEDROL) VIAL IV SCH (08:47)
[2021-01-09] MEDS: diphenhydrAMINE 25 MG TAB (BENADRYL) PO SCH (08:47)
[2021-01-09] MEDS: INFLIXIMAB FOR IV SCH (08:48)
[2021-01-09] MEDS: NORMAL SALINE IV SCH (08:48)
[2021-01-09 09:02] LABS: ALANINE AMINOTRANSFERASE 50 U/L (0-55)
[2021-01-09 09:04] LABS: ERYTHROCYTE SEDIMENTATION RATE 23 MM/HR (0-20)
[2021-02-18] VITALS (7 sets, daily range): BP systolic 95–113; BP diastolic 60–81
[2021-02-18] MEDS: methylPREDNISolone 40 MG/ML (Solu-MEDROL) VIAL IV SCH (08:30)
[2021-02-18 08:34] LABS: BASOPHILS % (AUTO) 1 % (0-10); EOSINOPHILS # (AUTO) 0.4 10^3/uL (0.0-0.3); EOSINOPHILS % (AUTO) 7 % (0-10); HEMATOCRIT 40 % (35-52); HEMOGLOBIN 12.6 g/dL (11.5-16.0); LYMPHOCYTES # (AUTO) 2.9 10^3/uL (1.0-4.0); LYMPHOCYTES % (AUTO) 46 % (12-44); MEAN CORPUSCULAR HEMOGLOBIN 27 pg (25-34); MEAN CORPUSCULAR HGB CONC 32 g/dL (32-36); MEAN CORPUSCULAR VOLUME 86 fL (80-99); MEAN PLATELET VOLUME 10.6 fL (9.0-12.2); MONOCYTES # (AUTO) 0.5 10^3/uL (0.0-1.0); MONOCYTES % (AUTO) 8 % (0-12); NEUTROPHILS # (AUTO) 2.4 10^3/uL (1.8-7.8); NEUTROPHILS % (AUTO) 38 % (42-75); PLATELET COUNT 359 10^3/uL (130-400); WHITE BLOOD COUNT 6.4 10^3/uL (4.3-11.0)
[2021-02-18] MEDS: ACETAMINOPHEN 325 MG TABLET PO SCH (08:37)
[2021-02-18] MEDS: diphenhydrAMINE 25 MG TAB (BENADRYL) PO SCH (08:37)
[2021-02-18 08:44] LABS: ALBUMIN 3.7 GM/DL (3.2-4.5); CHLORIDE 105 MMOL/L (98-107); POTASSIUM 4.2 MMOL/L (3.6-5.0); SODIUM 139 MMOL/L (135-145)
[2021-02-18 08:47] LABS: GLUCOSE 103 MG/DL (70-105); TOTAL PROTEIN 6.7 GM/DL (6.4-8.2)
[2021-02-18 08:48] LABS: CARBON DIOXIDE 25 MMOL/L (21-32)
[2021-02-18 08:49] LABS: BILIRUBIN,TOTAL 0.4 MG/DL (0.1-1.0)
[2021-02-18 08:50] LABS: ALKALINE PHOSPHATASE 90 U/L (40-136)
[2021-02-18] MEDS: NORMAL SALINE IV SCH (08:50)
[2021-02-18] MEDS: INFLIXIMAB FOR IV SCH (08:50)
[2021-02-18 08:51] LABS: CREATININE SERUM 0.58 MG/DL (0.60-1.30); GFR ESTIMATED > 60
[2021-02-18 08:52] LABS: BUN/CREATININE RATIO 24
[2021-02-18 08:53] LABS: ALANINE AMINOTRANSFERASE 63 U/L (0-55)
[2021-02-18 08:59] LABS: ERYTHROCYTE SEDIMENTATION RATE 17 MM/HR (0-20)
[~2021-03-18] VITALS: Ht 152.4 cm; Wt 59.0 kg
[2021-03-18 08:00] VITALS: BP 109/78
[~2021-03-18 08:07] MED LIST changes: -ACETAMINOPHEN 325 MG TABLET ONE; -EPINEPHrine INJECTION 1 MG/ML AMP IV PRN; +EPINEPHrine INJECTION 1 MG/ML AMP SC PRN; +ONDANSETRON 4 MG (ZOFRAN) ORAL DISSOLVE TAB PO PRN; -ONDANSETRON 4 MG/2 ML (SDV) Z0FRAN IV PRN; +ONDANSETRON 4 MG/2 ML (SDV) Z0FRAN IVP PRN; -diphenhydrAMINE 50 MG/ML INJ (BENADRYL) IV PRN; +diphenhydrAMINE 50 MG/ML INJ (BENADRYL) IVP PRN; -diphenhydrAMINE 50 MG/ML INJ (BENADRYL) ONE
[2021-03-18 08:36] LABS: BASOPHILS % (AUTO) 0 % (0-10); EOSINOPHILS # (AUTO) 0.5 10^3/uL (0.0-0.3); EOSINOPHILS % (AUTO) 7 % (0-10); HEMATOCRIT 40 % (35-52); LYMPHOCYTES # (AUTO) 2.8 10^3/uL (1.0-4.0); LYMPHOCYTES % (AUTO) 40 % (12-44); MEAN CORPUSCULAR HEMOGLOBIN 28 pg (25-34); MEAN CORPUSCULAR HGB CONC 32 g/dL (32-36); MEAN CORPUSCULAR VOLUME 86 fL (80-99); MEAN PLATELET VOLUME 11.3 fL (9.0-12.2); MONOCYTES # (AUTO) 0.5 10^3/uL (0.0-1.0); MONOCYTES % (AUTO) 7 % (0-12); NEUTROPHILS # (AUTO) 3.2 10^3/uL (1.8-7.8); NEUTROPHILS % (AUTO) 45 % (42-75); PLATELET COUNT 337 10^3/uL (130-400)
[2021-03-18 08:44] LABS: ALANINE AMINOTRANSFERASE 55 U/L (0-55); ALBUMIN 3.6 GM/DL (3.2-4.5); ALKALINE PHOSPHATASE 88 U/L (40-136); BILIRUBIN,TOTAL 0.6 MG/DL (0.1-1.0); BUN/CREATININE RATIO 15; CARBON DIOXIDE 23 MMOL/L (21-32); CHLORIDE 108 MMOL/L (98-107); CREATININE SERUM 0.59 MG/DL (0.60-1.30); GFR ESTIMATED > 60; GLUCOSE 87 MG/DL (70-105); POTASSIUM 4.1 MMOL/L (3.6-5.0); SODIUM 139 MMOL/L (135-145); TOTAL PROTEIN 6.8 GM/DL (6.4-8.2)
[2021-03-18] MEDS ORDERED: diphenhydrAMINE 25 MG TAB (BENADRYL) PO SCH (08:45)
[2021-03-18] MEDS ORDERED: ACETAMINOPHEN 325 MG TABLET PO SCH (08:45)
[2021-03-18] MEDS ORDERED: methylPREDNISolone 40 MG/ML (Solu-MEDROL) VIAL IV SCH (08:45)
[2021-03-18 08:57] LABS: ERYTHROCYTE SEDIMENTATION RATE 17 MM/HR (0-20)
[2021-03-18 09:00] VITALS: BP 109/81
[2021-03-18] MEDS: INFLIXIMAB FOR IV SCH (09:15)
[2021-03-18] MEDS: NORMAL SALINE IV SCH (09:15)
[2021-03-18 09:47] VITALS: BP 113/72
[2021-03-18 11:00] VITALS: BP 116/66
[2021-03-18 12:00] VITALS: BP 118/77
== END 2021-03-18 12:00 | disposition home or self-care (01) ==
LOC: SDC 08:07
PROVIDERS: ATTEND Pediatrics
DX: Z51.81 Encounter for therapeutic drug level monitoring (principal)
CPT/HCPCS: 36415; 80053; 85025; 85652; 86141; 96365; 96366

== ENCOUNTER 2021-07-31 08:24 | Outpatient (RCR) | payer BC ==
[2021-05-08] VITALS (8 sets, daily range): BP systolic 107–118; BP diastolic 71–82
[2021-05-08 07:58] LABS: BASOPHILS # (AUTO) 0.1 10^3/uL (0.0-0.1); BASOPHILS % (AUTO) 1 % (0-10); EOSINOPHILS # (AUTO) 0.7 10^3/uL (0.0-0.3); EOSINOPHILS % (AUTO) 11 % (0-10); HEMATOCRIT 41 % (35-52); HEMOGLOBIN 12.9 g/dL (11.5-16.0); LYMPHOCYTES # (AUTO) 2.3 10^3/uL (1.0-4.0); LYMPHOCYTES % (AUTO) 32 % (12-44); MEAN CORPUSCULAR HEMOGLOBIN 27 pg (25-34); MEAN CORPUSCULAR HGB CONC 32 g/dL (32-36); MEAN CORPUSCULAR VOLUME 86 fL (80-99); MONOCYTES # (AUTO) 0.5 10^3/uL (0.0-1.0); MONOCYTES % (AUTO) 7 % (0-12); NEUTROPHILS # (AUTO) 3.5 10^3/uL (1.8-7.8); NEUTROPHILS % (AUTO) 50 % (42-75); PLATELET COUNT 365 10^3/uL (130-400); WHITE BLOOD COUNT 7.1 10^3/uL (4.3-11.0)
[2021-05-08] MEDS: ACETAMINOPHEN 325 MG TABLET PO SCH (08:02)
[2021-05-08] MEDS: methylPREDNISolone 40 MG/ML (Solu-MEDROL) VIAL IV SCH (08:03)
[2021-05-08] MEDS: diphenhydrAMINE 25 MG TAB (BENADRYL) PO SCH (08:12)
[2021-05-08 08:16] LABS: ALBUMIN 3.6 GM/DL (3.2-4.5); BILIRUBIN,TOTAL 0.5 MG/DL (0.1-1.0); CALCIUM 8.8 MG/DL (8.5-10.1); CREATININE SERUM 0.6 MG/DL (0.60-1.30); POTASSIUM 4.1 MMOL/L (3.6-5.0)
[2021-05-08 08:18] LABS: ERYTHROCYTE SEDIMENTATION RATE 14 MM/HR (0-20)
[2021-05-08] MEDS: INFLIXIMAB IV SCH ×2 (08:25)
[2021-05-08] MEDS: SODIUM CHLORIDE IV SCH ×2 (08:25)
[2021-06-05 09:55] VITALS: BP 116/80
[2021-06-05] MEDS: diphenhydrAMINE 25 MG TAB (BENADRYL) PO SCH ×2 (10:05→10:34)
[2021-06-05] MEDS: ACETAMINOPHEN 325 MG TABLET PO SCH ×2 (10:05→10:34)
[2021-06-05] MEDS: methylPREDNISolone 40 MG/ML (Solu-MEDROL) VIAL IV SCH ×2 (10:20→10:35)
[2021-06-05] MEDS: INFLIXIMAB IV SCH ×2 (10:42)
[2021-06-05] MEDS: SODIUM CHLORIDE IV SCH ×2 (10:42)
[2021-06-05 10:45] VITALS: BP 116/80
[2021-06-05 10:49] LABS: BASOPHILS % (AUTO) 0 % (0-10); EOSINOPHILS # (AUTO) 0.5 10^3/uL (0.0-0.3); EOSINOPHILS % (AUTO) 6 % (0-10); HEMATOCRIT 40 % (35-52); HEMOGLOBIN 12.7 g/dL (11.5-16.0); LYMPHOCYTES # (AUTO) 1.8 X 10^3 (1.0-4.0); LYMPHOCYTES % (AUTO) 22 % (12-44); MEAN CORPUSCULAR HEMOGLOBIN 27 pg (25-34); MEAN CORPUSCULAR HGB CONC 32 g/dL (32-36); MEAN CORPUSCULAR VOLUME 85 fL (80-99); MEAN PLATELET VOLUME 10.4 fL (9.0-12.2); MONOCYTES # (AUTO) 0.5 X 10^3 (0.0-1.0); MONOCYTES % (AUTO) 6 % (0-12); NEUTROPHILS # (AUTO) 5.4 X 10^3 (1.8-7.8); NEUTROPHILS % (AUTO) 66 % (42-75); PLATELET COUNT 415 10^3/uL (130-400); WHITE BLOOD COUNT 8.2 10^3/uL (4.3-11.0)
[2021-06-05 11:00] VITALS: BP 108/70
[2021-06-05 11:07] LABS: ALBUMIN 3.4 GM/DL (3.2-4.5); BILIRUBIN,TOTAL 0.4 MG/DL (0.1-1.0); CALCIUM 8.7 MG/DL (8.5-10.1); CREATININE SERUM 0.53 MG/DL (0.60-1.30); POTASSIUM 4.2 MMOL/L (3.6-5.0); TOTAL PROTEIN 6.5 GM/DL (6.4-8.2)
[2021-06-05 11:10] LABS: ERYTHROCYTE SEDIMENTATION RATE 33 MM/HR (0-20)
[2021-06-05 11:30] VITALS: BP 110/84
[2021-06-05 12:00] VITALS: BP 120/78
[2021-06-05 13:00] VITALS: BP 119/78
[2021-07-03 09:40] VITALS: BP 116/72
[2021-07-03 10:00] LABS: BASOPHILS % (AUTO) 1 % (0-10); EOSINOPHILS # (AUTO) 0.6 10^3/uL (0.0-0.3); EOSINOPHILS % (AUTO) 9 % (0-10); HEMATOCRIT 40 % (35-52); HEMOGLOBIN 13.1 g/dL (11.5-16.0); LYMPHOCYTES % (AUTO) 26 % (12-44); MEAN CORPUSCULAR HEMOGLOBIN 28 pg (25-34); MEAN CORPUSCULAR HGB CONC 33 g/dL (32-36); MEAN CORPUSCULAR VOLUME 85 fL (80-99); MEAN PLATELET VOLUME 10.7 fL (9.0-12.2); MONOCYTES # (AUTO) 0.4 10^3/uL (0.0-1.0); MONOCYTES % (AUTO) 6 % (0-12); NEUTROPHILS # (AUTO) 4.4 10^3/uL (1.8-7.8); NEUTROPHILS % (AUTO) 59 % (42-75); PLATELET COUNT 429 10^3/uL (130-400); WHITE BLOOD COUNT 7.5 10^3/uL (4.3-11.0)
[2021-07-03] MEDS: methylPREDNISolone 40 MG/ML (Solu-MEDROL) VIAL IV SCH (10:02)
[2021-07-03] MEDS: ACETAMINOPHEN 325 MG TABLET PO SCH (10:02)
[2021-07-03] MEDS: diphenhydrAMINE 25 MG TAB (BENADRYL) PO SCH (10:03)
[2021-07-03 10:22] LABS: ERYTHROCYTE SEDIMENTATION RATE 27 MM/HR (0-20)
[2021-07-03 10:23] LABS: ALBUMIN 3.7 GM/DL (3.2-4.5); BILIRUBIN,TOTAL 0.6 MG/DL (0.1-1.0); CALCIUM 8.8 MG/DL (8.5-10.1); CREATININE SERUM 0.62 MG/DL (0.60-1.30); POTASSIUM 4.4 MMOL/L (3.6-5.0); TOTAL PROTEIN 7.1 GM/DL (6.4-8.2)
[2021-07-03] MEDS: INFLIXIMAB IV SCH ×2 (10:23)
[2021-07-03] MEDS: SODIUM CHLORIDE IV SCH ×2 (10:23)
[~2021-07-31] VITALS: Ht 152 cm; Wt 59.0 kg
[2021-07-31] VITALS (7 sets, daily range): BP systolic 120–134; BP diastolic 67–86
[~2021-07-31 08:24] MED LIST changes: +ACETAMINOPHEN 325 MG TABLET ONE; -ONDANSETRON 4 MG (ZOFRAN) ORAL DISSOLVE TAB PO PRN; +ONDANSETRON 4 MG/2 ML (SDV) Z0FRAN IV PRN; -ONDANSETRON 4 MG/2 ML (SDV) Z0FRAN IVP PRN; +diphenhydrAMINE 25 MG TAB (BENADRYL) PO ONE; +diphenhydrAMINE 50 MG/ML INJ (BENADRYL) IV PRN; -diphenhydrAMINE 50 MG/ML INJ (BENADRYL) IVP PRN; -methylPREDNISolone 125 MG (Solu-MEDROL) VIAL IV PRN; +methylPREDNISolone 40 MG/ML (Solu-MEDROL) VIAL ONE
[2021-07-31] MEDS: diphenhydrAMINE 25 MG TAB (BENADRYL) PO SCH (09:12)
[2021-07-31] MEDS: methylPREDNISolone 40 MG/ML (Solu-MEDROL) VIAL IV SCH (09:13)
[2021-07-31] MEDS: ACETAMINOPHEN 325 MG TABLET PO SCH (09:13)
[2021-07-31] MEDS: SODIUM CHLORIDE IV SCH ×2 (09:31)
[2021-07-31] MEDS: INFLIXIMAB IV SCH ×2 (09:31)
[2021-07-31 09:34] LABS: BASOPHILS % (AUTO) 0 % (0-10); EOSINOPHILS # (AUTO) 0.5 10^3/uL (0.0-0.3); EOSINOPHILS % (AUTO) 6 % (0-10); HEMATOCRIT 41 % (35-52); HEMOGLOBIN 13.4 g/dL (11.5-16.0); LYMPHOCYTES # (AUTO) 1.6 10^3/uL (1.0-4.0); LYMPHOCYTES % (AUTO) 17 % (12-44); MEAN CORPUSCULAR HEMOGLOBIN 28 pg (25-34); MEAN CORPUSCULAR HGB CONC 32 g/dL (32-36); MEAN CORPUSCULAR VOLUME 85 fL (80-99); MEAN PLATELET VOLUME 10.5 fL (9.0-12.2); MONOCYTES # (AUTO) 0.4 10^3/uL (0.0-1.0); MONOCYTES % (AUTO) 5 % (0-12); NEUTROPHILS # (AUTO) 6.4 10^3/uL (1.8-7.8); NEUTROPHILS % (AUTO) 72 % (42-75); PLATELET COUNT 406 10^3/uL (130-400); WHITE BLOOD COUNT 8.9 10^3/uL (4.3-11.0)
[2021-07-31 09:50] LABS: BILIRUBIN,TOTAL 0.7 MG/DL (0.1-1.0); CALCIUM 8.9 MG/DL (8.5-10.1); CREATININE SERUM 0.64 MG/DL (0.60-1.30); TOTAL PROTEIN 7.6 GM/DL (6.4-8.2)
[2021-07-31 10:02] LABS: ERYTHROCYTE SEDIMENTATION RATE 20 MM/HR (0-20)
== END 2021-08-06 | disposition home or self-care (01) ==
LOC: SDC 08:24
PROVIDERS: ATTEND Pediatrics
DX: Z01.89 Encounter for other specified special examinations (principal)
CPT/HCPCS: 36415; 80053; 85025; 85652; 86141; 96365; 96366; 96374

== ENCOUNTER 2021-08-29 08:07 | Outpatient (RCR) | payer BC ==
[2021-08-29 08:10] VITALS: BP 123/87
[2021-08-29] MEDS ORDERED: ACETAMINOPHEN 325 MG TABLET PO SCH (08:30)
[2021-08-29] MEDS ORDERED: NORMAL SALINE IV SCH (08:30)
[2021-08-29] MEDS ORDERED: methylPREDNISolone 125 MG (Solu-MEDROL) VIAL IVP SCH (08:30)
[2021-08-29] MEDS ORDERED: INFLIXIMAB FOR IV SCH (08:30)
[2021-08-29] MEDS ORDERED: methylPREDNISolone 125 MG (Solu-MEDROL) VIAL IV PRN (08:30)
[2021-08-29] MEDS ORDERED: EPINEPHrine INJECTION 1 MG/ML AMP SC PRN (08:30)
[2021-08-29] MEDS ORDERED: diphenhydrAMINE 25 MG TAB (BENADRYL) PO SCH (08:30)
[2021-08-29] MEDS ORDERED: ONDANSETRON 4 MG/2 ML (SDV) Z0FRAN IV PRN (08:30)
[2021-08-29] MEDS ORDERED: diphenhydrAMINE 50 MG/ML INJ (BENADRYL) IV PRN (08:30)
[2021-08-29 09:06] LABS: BASOPHILS % (AUTO) 1 % (0-10); EOSINOPHILS # (AUTO) 0.4 10^3/uL (0.0-0.3); EOSINOPHILS % (AUTO) 5 % (0-10); HEMATOCRIT 40 % (35-52); HEMOGLOBIN 12.8 g/dL (11.5-16.0); LYMPHOCYTES # (AUTO) 2.1 10^3/uL (1.0-4.0); LYMPHOCYTES % (AUTO) 25 % (12-44); MEAN CORPUSCULAR HEMOGLOBIN 27 pg (25-34); MEAN CORPUSCULAR HGB CONC 32 g/dL (32-36); MEAN CORPUSCULAR VOLUME 84 fL (80-99); MEAN PLATELET VOLUME 11.1 fL (9.0-12.2); MONOCYTES # (AUTO) 0.6 10^3/uL (0.0-1.0); MONOCYTES % (AUTO) 7 % (0-12); NEUTROPHILS # (AUTO) 5.2 10^3/uL (1.8-7.8); NEUTROPHILS % (AUTO) 62 % (42-75); PLATELET COUNT 330 10^3/uL (130-400); WHITE BLOOD COUNT 8.3 10^3/uL (4.3-11.0)
[2021-08-29 09:21] LABS: ALBUMIN 3.4 GM/DL (3.2-4.5); BILIRUBIN,TOTAL 0.4 MG/DL (0.1-1.0); CALCIUM 8.4 MG/DL (8.5-10.1); CREATININE SERUM 0.6 MG/DL (0.60-1.30); TOTAL PROTEIN 6.6 GM/DL (6.4-8.2)
[2021-08-29 09:50] LABS: ERYTHROCYTE SEDIMENTATION RATE 11 MM/HR (0-20)
== END 2021-09-19 | disposition home or self-care (01) ==
LOC: SDC 08:07
PROVIDERS: ATTEND Pediatrics
DX: E84.8 Cystic fibrosis with other manifestations (principal); M19.90 Unspecified osteoarthritis, unspecified site
CPT/HCPCS: 36415; 80053; 85025; 85652; 86141; 96365; 96366

== ENCOUNTER → 2021-10-20 | Outpatient (RCR) | payer BC, OTHER ==
[2021-09-24] VITALS (7 sets, daily range): BP systolic 95–115; BP diastolic 70–81
[2021-09-24 10:09] LABS: BASOPHILS % (AUTO) 1 % (0-10); EOSINOPHILS # (AUTO) 0.6 10^3/uL (0.0-0.3); EOSINOPHILS % (AUTO) 9 % (0-10); HEMATOCRIT 42 % (35-52); HEMOGLOBIN 13.5 g/dL (11.5-16.0); LYMPHOCYTES # (AUTO) 1.7 10^3/uL (1.0-4.0); LYMPHOCYTES % (AUTO) 25 % (12-44); MEAN CORPUSCULAR HEMOGLOBIN 27 pg (25-34); MEAN CORPUSCULAR HGB CONC 32 g/dL (32-36); MEAN CORPUSCULAR VOLUME 83 fL (80-99); MEAN PLATELET VOLUME 10.5 fL (9.0-12.2); MONOCYTES # (AUTO) 0.6 10^3/uL (0.0-1.0); MONOCYTES % (AUTO) 10 % (0-12); NEUTROPHILS # (AUTO) 3.7 10^3/uL (1.8-7.8); NEUTROPHILS % (AUTO) 55 % (42-75); PLATELET COUNT 392 10^3/uL (130-400); WHITE BLOOD COUNT 6.7 10^3/uL (4.3-11.0)
[2021-09-24 10:28] LABS: ALBUMIN 3.7 GM/DL (3.2-4.5); BILIRUBIN,TOTAL 0.4 MG/DL (0.1-1.0); CALCIUM 8.8 MG/DL (8.5-10.1); CREATININE SERUM 0.58 MG/DL (0.60-1.30); POTASSIUM 3.9 MMOL/L (3.6-5.0); TOTAL PROTEIN 7.5 GM/DL (6.4-8.2)
[2021-09-24 10:34] LABS: ERYTHROCYTE SEDIMENTATION RATE 28 MM/HR (0-20)
[~2021-10-20] VITALS: Ht 152.4 cm; Wt 52.3 kg
[~2021-10-20] MED LIST changes: -ACETAMINOPHEN 325 MG TABLET ONE; +ACETAMINOPHEN 325 MG TABLET PO SCH; +INFLIXIMAB FOR IV ONE; +INFLIXIMAB FOR IV SCH; +NORMAL SALINE IV ONE; +NORMAL SALINE IV SCH; -diphenhydrAMINE 25 MG TAB (BENADRYL) PO ONE; +diphenhydrAMINE 25 MG TAB (BENADRYL) PO SCH; +methylPREDNISolone 125 MG (Solu-MEDROL) VIAL IV PRN; +methylPREDNISolone 125 MG (Solu-MEDROL) VIAL IVP SCH; -methylPREDNISolone 40 MG/ML (Solu-MEDROL) VIAL ONE
[2021-10-20 12:45] VITALS: BP 111/81
[2021-10-20 13:04] LABS: BASOPHILS % (AUTO) 0 % (0-10); EOSINOPHILS # (AUTO) 0.7 10^3/uL (0.0-0.3); EOSINOPHILS % (AUTO) 6 % (0-10); HEMATOCRIT 38 % (35-52); HEMOGLOBIN 11.7 g/dL (11.5-16.0); LYMPHOCYTES # (AUTO) 2.4 10^3/uL (1.0-4.0); LYMPHOCYTES % (AUTO) 22 % (12-44); MEAN CORPUSCULAR HEMOGLOBIN 27 pg (25-34); MEAN CORPUSCULAR HGB CONC 31 g/dL (32-36); MEAN CORPUSCULAR VOLUME 87 fL (80-99); MEAN PLATELET VOLUME 10.5 fL (9.0-12.2); MONOCYTES # (AUTO) 0.5 10^3/uL (0.0-1.0); MONOCYTES % (AUTO) 5 % (0-12); NEUTROPHILS # (AUTO) 7.2 10^3/uL (1.8-7.8); NEUTROPHILS % (AUTO) 67 % (42-75); PLATELET COUNT 370 10^3/uL (130-400); WHITE BLOOD COUNT 10.8 10^3/uL (4.3-11.0)
[2021-10-20 13:23] LABS: ALBUMIN 3.7 GM/DL (3.2-4.5); BILIRUBIN,TOTAL 0.7 MG/DL (0.1-1.0); CALCIUM 8.4 MG/DL (8.5-10.1); CREATININE SERUM 0.61 MG/DL (0.60-1.30); POTASSIUM 3.9 MMOL/L (3.6-5.0); TOTAL PROTEIN 7.3 GM/DL (6.4-8.2)
[2021-10-20 14:01] LABS: ERYTHROCYTE SEDIMENTATION RATE 19 MM/HR (0-20)
== END | disposition home or self-care (01) ==
LOC: SDC 09-24 09:27
PROVIDERS: ATTEND Pediatrics
DX: Z01.89 Encounter for other specified special examinations (principal)
CPT/HCPCS: 36415; 80053; 82397; 85025; 85027; 85652; 86141; 96365; 96366; 96374

== ENCOUNTER → 2021-12-08 | Outpatient (CLI) | payer OTHER ==
[~2021-12-08] MED LIST changes: -ACETAMINOPHEN 325 MG TABLET PO SCH; +ACETAMINOPHEN 500 MG TAB (TYLENOL) PO PRN; -INFLIXIMAB FOR IV ONE; -INFLIXIMAB FOR IV SCH; -NORMAL SALINE IV ONE; -NORMAL SALINE IV SCH; -ONDANSETRON 4 MG/2 ML (SDV) Z0FRAN IV PRN; +[UNRECOGNIZED DRUG - REMARK] IV SCH; -diphenhydrAMINE 25 MG TAB (BENADRYL) PO SCH; -methylPREDNISolone 125 MG (Solu-MEDROL) VIAL IVP SCH
[2021-12-08 12:15] VITALS: BP 115/81
[2021-12-08 12:29] LABS: BASOPHILS % (AUTO) 0 % (0-10); EOSINOPHILS # (AUTO) 0.3 10^3/uL (0.0-0.3); EOSINOPHILS % (AUTO) 3 % (0-10); HEMATOCRIT 39 % (35-52); HEMOGLOBIN 12.2 g/dL (11.5-16.0); LYMPHOCYTES # (AUTO) 1.7 10^3/uL (1.0-4.0); LYMPHOCYTES % (AUTO) 19 % (12-44); MEAN CORPUSCULAR HEMOGLOBIN 27 pg (25-34); MEAN CORPUSCULAR HGB CONC 32 g/dL (32-36); MEAN CORPUSCULAR VOLUME 85 fL (80-99); MEAN PLATELET VOLUME 10.6 fL (9.0-12.2); MONOCYTES # (AUTO) 0.4 10^3/uL (0.0-1.0); MONOCYTES % (AUTO) 5 % (0-12); NEUTROPHILS # (AUTO) 6.4 10^3/uL (1.8-7.8); NEUTROPHILS % (AUTO) 72 % (42-75); PLATELET COUNT 393 10^3/uL (130-400); WHITE BLOOD COUNT 8.9 10^3/uL (4.3-11.0)
[2021-12-08 12:52] LABS: ALBUMIN 3.7 GM/DL (3.2-4.5); BILIRUBIN,TOTAL 0.4 MG/DL (0.1-1.0); CALCIUM 8.9 MG/DL (8.5-10.1); CREATININE SERUM 0.61 MG/DL (0.60-1.30); POTASSIUM 4.5 MMOL/L (3.6-5.0); TOTAL PROTEIN 7.7 GM/DL (6.4-8.2)
== END ==
LOC: SDC 11:56
PROVIDERS: ATTEND Internal Medicine Rheumatology
DX: M08.09 Unspecified juvenile rheumatoid arthritis, multiple sites (principal)
CPT/HCPCS: 36415; 80053; 85025; 96365; J0129

== ENCOUNTER → 2021-12-22 | Outpatient (CLI) | payer OTHER ==
[2021-12-22 12:15] VITALS: BP 126/79
== END ==
LOC: SDC 12:09
PROVIDERS: ATTEND Internal Medicine Rheumatology
DX: M08.09 Unspecified juvenile rheumatoid arthritis, multiple sites (principal)
CPT/HCPCS: 96365; J0129

== ENCOUNTER 2022-01-19 10:36 | Outpatient (CLI) | payer OTHER ==
[~2022-01-19] VITALS: Ht 152.4 cm; Wt 52.3 kg
[2022-01-19] MEDS ORDERED: [UNRECOGNIZED DRUG - REMARK] IV SCH (10:46)
[2022-01-19] MEDS ORDERED: ACETAMINOPHEN 500 MG TAB (TYLENOL) PO PRN (10:47)
[2022-01-19] MEDS ORDERED: methylPREDNISolone 125 MG (Solu-MEDROL) VIAL IV PRN (10:47)
[2022-01-19] MEDS ORDERED: diphenhydrAMINE 50 MG/ML INJ (BENADRYL) IV PRN (10:47)
[2022-01-19] MEDS ORDERED: EPINEPHrine INJECTION 1 MG/ML AMP SC PRN (10:47)
[2022-01-19 12:00] VITALS: BP 111/81
== END 2022-01-19 12:00 | disposition home or self-care (01) ==
LOC: SDC 10:36
PROVIDERS: ATTEND Internal Medicine Rheumatology
DX: M08.09 Unspecified juvenile rheumatoid arthritis, multiple sites (principal)
CPT/HCPCS: 96365; J0129

== ENCOUNTER → 2022-02-19 | Outpatient (CLI) | payer OTHER ==
[2022-02-19 12:11] LABS: BASOPHILS % (AUTO) 1 % (0-10); EOSINOPHILS # (AUTO) 0.2 10^3/uL (0.0-0.3); EOSINOPHILS % (AUTO) 2 % (0-10); HEMATOCRIT 38 % (35-52); HEMOGLOBIN 12.3 g/dL (11.5-16.0); LYMPHOCYTES # (AUTO) 1.7 10^3/uL (1.0-4.0); LYMPHOCYTES % (AUTO) 20 % (12-44); MEAN CORPUSCULAR HEMOGLOBIN 27 pg (25-34); MEAN CORPUSCULAR HGB CONC 32 g/dL (32-36); MEAN CORPUSCULAR VOLUME 84 fL (80-99); MEAN PLATELET VOLUME 11.5 fL (9.0-12.2); MONOCYTES # (AUTO) 0.5 10^3/uL (0.0-1.0); MONOCYTES % (AUTO) 6 % (0-12); NEUTROPHILS # (AUTO) 6.3 10^3/uL (1.8-7.8); NEUTROPHILS % (AUTO) 72 % (42-75); PLATELET COUNT 353 10^3/uL (130-400); WHITE BLOOD COUNT 8.8 10^3/uL (4.3-11.0)
[2022-02-19 12:26] LABS: ALBUMIN 3.6 GM/DL (3.2-4.5)
[2022-02-19 12:27] LABS: POTASSIUM 3.8 MMOL/L (3.6-5.0)
[2022-02-19 12:28] LABS: CALCIUM 8.7 MG/DL (8.5-10.1)
[2022-02-19 12:29] LABS: TOTAL PROTEIN 6.7 GM/DL (6.4-8.2)
[2022-02-19 12:31] LABS: BILIRUBIN,TOTAL 0.3 MG/DL (0.1-1.0)
[2022-02-19 12:33] LABS: CREATININE SERUM 0.56 MG/DL (0.60-1.30)
[2022-02-19 13:12] VITALS: BP 107/74
[2022-02-19 13:17] VITALS: BP 107/74
== END ==
LOC: SDC 10:56
PROVIDERS: ATTEND Internal Medicine Rheumatology
DX: M08.09 Unspecified juvenile rheumatoid arthritis, multiple sites (principal)
CPT/HCPCS: 36415; 80053; 85025; 96365